=== PATIENT | female | born 1935 | race Caucasian/White ===

== ENCOUNTER → 2016-09-22 | Outpatient (CLI) | payer OTHER ==
[~2016-09-22] MED LIST: GADOBUTROL 10 ML VIAL IVP ONE
--- NOTE | 2016-09-22 15:34 | MR ---
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 Comparison:: MRI brain February 2016. Technique: T1-weighted images were acquired axially and sagittally from the foramen magnum to the ve rtex. Axial fast inversion-recovery, fast T2-weighted, and diffusion-weighted axial images were obta ined without contrast. Postcontrast axial , coronal, and sagittal T1-weighted images with the unevent ful intravenous administration of 7 mL Gadavist contrast. Findings: No residual enhancing tumor involving the right orbital apex paracavernous region when comp ared to the previous study from February 2016. No new enhancing lesions. The ventricles, cisterns, and landa lci are widened consistent with atrophy. No hydrocephalus, midline shift, herniation, or epidural/landa bdural hematomas. No intracranial hemorrhage or masses. Diffusion-weighted images demonstrate no acut e infarct. Cerebellar tonsils are in normal position. Pituitary gland is normal in size. Normal signa l flow-void in the superior sagittal sinus, basilar artery, and bilateral internal carotid arteries i ndicating patency. Several nonspecific bilateral white matter hyperintense T2/FLAIR signal abnormalit ies without mass effect or enhancement. Paranasal sinuses and mastoid air cells are clear. Impression: 1. No residual enhancing mass involving the right orbital apex or paracavernous region. 2. No acute hemorrhage, definite acute infarct, hydrocephalus or mass effect. 3. Mild cerebral atrophy and mild microvascular ischemic gliosis without new enhancing lesions.
== END ==
LOC: FIMAGING 10:02
PROVIDERS: ATTEND Internal Medicine Infectious Disease
DX: Z09 Encounter for follow-up examination after completed treatment for conditions other than malignant neoplasm (principal); Z86.19 Personal history of other infectious and parasitic diseases
CPT/HCPCS: 70553; A9585

== ENCOUNTER 2017-09-01 11:14 | Observation (INO) | payer OTHER ==
[2017-09-01] MEDS ORDERED: ceFAZolin 2 GM/SWFI 2 GM/20 ML SYR IVP ONE (11:22)
[2017-09-01] MEDS ORDERED: diphenhydrAMINE 25 MG CAP PO ONE (11:22)
[2017-09-01] MEDS ORDERED: NS 1,000 ML IV ONE (11:22)
[2017-09-01] MEDS ORDERED: DIAZEPAM 5 MG TAB PO ONE (11:22)
[2017-09-01] MEDS ORDERED: BACITRACIN IRRIGATION/NS 50,000 UNITS/1,000 ML BTL IRR ONE (11:22)
--- NOTE | 2017-09-01 11:30 | PDHPUP ---
History & Physical Update H&P update statement: This history and physical update is based on an assessment of the patient which was completed after admission or registration (within 24 hours), but prior to the surgery/procedure. H&P update: H&P reviewed & patient examined, no change in patient's condition since H&P completed
--- NOTE | 2017-09-01 11:36 | PDPROPOC ---
Sedation Plan of Care Sedation Plan of Care: vital signs stable, mental status noted, patient educated of risks, benefits, alternatives, patient can tolerate sedation ASA Classification: ASA 3 Planned drugs: fentanyl, midazolam Mallampati Score: Class 3 Mallampati Reference Image: Patient passed 3-3-2 rule?: Yes
[2017-09-01] MEDS ORDERED: BUPIVACAINE 0.5% 30 ML SDV ONE (11:51)
[2017-09-01] MEDS ORDERED: LIDOCAINE 1% 300 MG/30 ML SDV ONE (11:51)
--- NOTE | 2017-09-01 12:01 | PDANEPAE ---
ANE History of Present Illness CHF ANE Past Medical History - Pulmonary History Hx Oxygen in Use at Home: No Hx Sleep Apnea: Yes - Endocrine History Hx Diabetes: No ANE Review of Systems Review of Systems: ANE Patient History - Allergies Allergies/Adverse Reactions: No Known Allergies Allergy (Verified 09/19/15 10:31) - Home Medications Home Medications: Lisinopril 04/17/14 [Last Taken Unknown] Gatifloxacin 0.5% 09/19/15 [Last Taken Unknown] Prednisolone 09/19/15 [Last Taken Unknown] - Smoking Hx Smoking Status: Former smoker ANE Labs/Vital Signs - Labs Result Diagrams: 09/01/17 11:45 09/01/17 11:45 ANE Physical Exam - Airway Neck exam: FROM Mallampati Score: Class 2 Mouth exam: normal dental/mouth exam - Pulmonary Pulmonary: no respiratory distress - Cardiovascular Cardiovascular: regular rate and rhythym - ASA Status ASA Status: IV ANE Anesthesia Plan Anesthesia Plan: MAC
[2017-09-01 12:04] LABS: PLATELET COUNT 227 10^3/uL (150-400)
[2017-09-01] MEDS ORDERED: PROPOFOL/EMULSION 500 MG/50 ML BOTTLE IV ONE (12:05)
[2017-09-01] MEDS ORDERED: MIDAZOLAM 2 MG/2 ML VIAL ONE (12:05)
[2017-09-01] MEDS ORDERED: fentaNYL 100 MCG/2 ML INJ ONE (12:05)
[2017-09-01 12:11] LABS: INR 0.94 (0.83-1.16); PROTIME(PATIENT) 12.8 SEC (12.0-15.0)
--- NOTE | 2017-09-01 13:33 | POSTANESTH ---
Post Anesthetic Evaluation Cardiovascular Status: Normal, Stable Respiratory Status: Normal, Stable Level of Consciousness/Mental Status: Can Participate in Eval Pain Control: Adequate, Prn Tx Ordered Nausea/Vomiting Control: Adequate, Prn Tx Ordered Complications Possibly Related to Anesthesia: None Noted
--- NOTE | 2017-09-01 13:53 | CPEKG ---
Heart Rate: 64 RR Interval: 938 P-R Interval: 184 QRSD Interval: 110 QT Interval: 476 QTC Interval: 491 P [place]: 35 QRS [place]: -49 T Wave [place]: 11 EKG Severity - ABNORMAL ECG - EKG Impression: SINUS RHYTHM EKG Impression: LEFT ANTERIOR FASCICULAR BLOCK EKG Impression: CONSIDER ANTERIOR INFARCT Electronically Signed By: Garcia Woo 01-Sep-2017 16:00:21
[2017-09-01] MEDS ORDERED: ACETAMINOPHEN 325 MG TAB ONE (15:52)
[2017-09-01] MEDS ORDERED: ACETAMINOPHEN 325 MG TAB PO PRN (16:14)
[2017-09-01] MEDS ORDERED: traZODone 100 MG TAB PO SCH (21:00)
[2017-09-01] MEDS ORDERED: HYDROCODONE/APAP 5/325 TAB PO ONE (22:15)
[2017-09-01] MEDS: SACUBITRIL/VALSARTAN 24/26MG 1 EA TAB PO SCH (22:33)
[2017-09-01] MEDS: SPIRONOLACTONE 25 MG TAB PO SCH (22:35)
[2017-09-02 00:10] VITALS: TEMP 98.4
[2017-09-02 04:07] VITALS: PULSE 89; RESP 18
[2017-09-02 04:43] LABS: PLATELET COUNT 191 10^3/uL (150-400)
[2017-09-02 07:22] VITALS: BP 112/62; O2SAT 92
--- NOTE | 2017-09-02 08:42 | CPEKG ---
Heart Rate: 91 RR Interval: 659 P-R Interval: 184 QRSD Interval: 110 QT Interval: 404 QTC Interval: 498 P [place]: 43 QRS [place]: -56 T Wave [place]: 60 EKG Severity - ABNORMAL ECG - EKG Impression: SINUS RHYTHM EKG Impression: VENTRICULAR PREMATURE COMPLEX EKG Impression: LEFT ANTERIOR FASCICULAR BLOCK EKG Impression: CONSIDER ANTERIOR INFARCT Electronically Signed By: Garcia Woo 02-Sep-2017 12:04:17
[2017-09-02] MEDS ORDERED: CHOLECALCIFEROL VIT D3 1,000 UNITS TAB PO SCH (09:00)
[2017-09-02] MEDS ORDERED: FUROSEMIDE 20 MG TAB PO SCH (09:00)
[2017-09-02] MEDS ORDERED: OMEGA-3 FATTY ACIDS 1,000 MG CAP PO SCH (09:00)
[2017-09-02] MEDS ORDERED: MULTIVITAMINS 1 EACH TAB PO SCH (09:00)
[2017-09-02] MEDS ORDERED: METOPROLOL SUCCINATE XR 50 MG TAB PO SCH (09:00)
[2017-09-02] MEDS: SPIRONOLACTONE 25 MG TAB PO SCH (09:02)
[2017-09-02] MEDS: SACUBITRIL/VALSARTAN 24/26MG 1 EA TAB PO SCH (09:03)
--- NOTE | 2017-09-02 12:27 | GDS ---
[f rep st] DISCHARGE SUMMARY DISCHARGE DIAGNOSES: 1. Nonischemic cardiomyopathy with an ejection fraction of 22%, status post [employer] Doni dual-chamber implantable cardioverter-defibrillator. 2. Chronic systolic congestive heart failure. 3. Alcohol abuse. 4. Normal cors by angiogram in October. HOSPITAL COURSE: For detailed H and P, please see prior dictation. Briefly, the patient is an 81-year-old female with a history of nonischemic cardiomyopathy and ejection fraction of 22%. Due to her history, the decision was made to proceed with a single chamber ICD, which was placed by Dr. Abel Huerta on September 01, 2017. The procedure was uncomplicated with left cephalic cut down. The following morning, her chest x-ray did suggest a possible apical pneumothorax. This was reviewed by Dr. Huerta, who did not feel that there was a true pneumothorax present secondary to left cephalic cut down and no attempt at subclavian access (also, a smooth passage of the wire into the IVC via left cephalic). Her oxygen saturation is 92% on room air, and she denies any shortness of breath or chest discomfort. Her ICD site is clean, intact, without any evidence of infection or hematoma. She denies any significant discomfort over her ICD site. PHYSICAL EXAMINATION: GENERAL: The patient appears in no acute distress. VITALS: Blood pressure 112/62, heart rate 89, oxygen saturation of 92% on room air. Afebrile. LUNGS: Clear to auscultation. No wheezes, rhonchi, or crackles auscultated. CARDIAC: Regular rate and rhythm without any significant murmurs, rubs, or gallops appreciated. CHEST WALL: Her ICD site is clean, intact, without any evidence of infection or hematoma. DISCHARGE MEDICATIONS: Spironolactone 12.5 mg b.i.d., Toprol-XL 50 mg daily, Entresto 24/26 mg b.i.d., Lasix 20 mg daily, trazodone 100 mg at bedtime, multivitamin daily, vitamin D3 daily, fish oil 1000 mg daily. PLAN: The patient is currently stable and ready for discharge home. She is scheduled to follow up in our office on September 08 for a pacer interrogation and wound check. If she develops significant shortness of breath or chest pain , she knows to contact our office or proceed to the ER promptly. Greater than 30 minutes was spent coordinating the patient's care today. /[id number]/MODL MTDD
--- NOTE | 2017-09-02 16:31 | ASDISCHSUM ---
Discharge Information Plan Status:Home with No Needs Medically Cleared to Leave:09/01/2017 Discharge Date:09/02/2017 10:15 AM CM D/C Disposition: ADT D/C Disposition:Home, Routine, Self-Care Projected Discharge Date:09/02/2017 12:00 AM Transportation at D/C: Discharge Delay Reason: Follow-Up Date:09/02/2017 12:00 AM Discharge Slot: Final Diagnosis: Placement Information Patient Contact Information Contact Name:MONICA Relationship:Daughter Address: City: [facility] Phone: [facility] Code: Email: Financial Information Financial Class:Medicare Advantage Plans Primary Plan Desc:[facility] [employer] Primary Plan Number:[id number] Secondary Plan Desc: Secondary Plan Number: Assessment Information Intervention Information
--- NOTE | 2017-09-03 11:32 | EPPROC ---
Electrophysiology Procedure Note: PROCEDURE PERFORMED: 1. Implantation of an V Implantable Cardioverter Defibrillator 2. 3. Fluoroscopy INDICATION: This is a 81 yr old wit cardiomyopathy with EF 30%, NYHA II-III, despite optimal medical management. hence it was decided to implant a single chamber ICD for primary prevention. PROCEDURE NOTE: Patient presented to the cardiac catheterization laboratory in a fasting, post absorptive state. Moderate sedation administered. The left infraclavicular area was prepped and draped in the usual sterile fashion. Lidocaine plus bupivacaine was used for local anesthesia. Fluoroscopy was utilized during the entire procedure for venous access and placement of the lead. Using usual technique left cephalic vein was accessed and glidewire easily placed in the IVC. Over this 7F sheath placed and through this, an active fixation ventricular ICD lead was advanced into the right ventricular apex and screwed in place. The peel away sheath was removed. Pacing thresholds, sensing parameters and lead impedances were measured. There was no diaphragmatic stimulation at maximum output. The lead was sutured to the prepectoral fascia with 3 nonabsorbable sutures. Pocket was created and flushed using antibiotic solution. The gauze packing was removed from the ICD pocket. The pocket was again inspected for any bleeding. The lead was attached to the ICD securely. The ICD was inserted into the pocket and secured in place with a nonabsorbable suture. Fluoroscopy was performed in [place] and [place] planes to verify right sided placement of the lead. Also fluoroscopy of the ICD pocket was performed. The ICD pocket was closed in 3 layers with vicryl . Appropriate dressing was applied. The patient left the cardiac catheterization laboratory in stable condition. Serial Numbers: 1. Device : St Doni Fortify Assura VR SN [id number] 2. Ventricular Lead: St Doni Durata [id number] Stimulation Thresholds & Impedance Measurements: 1. Ventricular Lead 8mV, 0.3@0.5ms, 526Ohms Pacing Parameters: 1. Pacing mode VVI 2. Lower rate 40 ppm Tachycardia therapy parameters: VT zone: Detection: 184 bpm First therapy : ATP 84% TCL, 8 beats, 2 sequences Second therapy: 40 Joule Subsequent therapies : 40 Joule VF zone : Detection: 214 bpm First therapy: 40 Joule Subsequent therapies: 40 Joule
--- NOTE | 2017-09-06 09:15 | CPEKG ---
Heart Rate: 97 RR Interval: 619 P-R Interval: 168 QRSD Interval: 98 QT Interval: 368 QTC Interval: 468 P [place]ff: 38 QRS [place]: -55 T Wave [place]: 50 EKG Severity - ABNORMAL ECG - EKG Impression: SINUS RHYTHM EKG Impression: LEFT ANTERIOR FASCICULAR BLOCK EKG Impression: CONSIDER ANTERIOR INFARCT Electronically Signed By: Emery Pedersen 06-Sep-2017 13:53:09
== END 2017-09-02 10:15 | disposition home or self-care (01) ==
LOC: FCATH 11:14 → F2W 13:19
PROVIDERS: ADMIT Internal Medicine Cardiovascular Disease; ATTEND Internal Medicine Cardiovascular Disease
PROC: 02HK3KZ Insertion of Defibrillator Lead into Right Ventricle, Percutaneous Approach (ICD-10-PCS; principal; 2017-09-01)
PROC: 0JH638Z Insertion of Defibrillator Generator into Chest Subcutaneous Tissue and Fascia, Percutaneous Approach (ICD-10-PCS; principal; 2017-09-01)
DX: I50.22 Chronic systolic (congestive) heart failure (principal); I42.9 Cardiomyopathy, unspecified; F10.10 Alcohol abuse, uncomplicated; I48.0 Paroxysmal atrial fibrillation
CPT/HCPCS: 33270; 71046; 93005; C1722; C1769; C1777; G0378; J0690; J2250; J2704; J3010